=== PATIENT | male | born 1975 | race Caucasian/White ===

== ENCOUNTER 2017-01-03 18:08 | Inpatient (IN) | payer OTHER ==
[2017-01-03] MEDS ORDERED: SODIUM CHLORIDE 0.9% 1,000 ML IV ONE ×3 (18:24→19:18)
[2017-01-03 18:50] LABS: BASOPHILS # (AUTO) 0.2 10^3/uL (0.0-0.1); BASOPHILS % (AUTO) 1.3 %; HCT - HEMATOCRIT 50.3 % (42.0-52.0); HGB - HEMOGLOBIN 17.4 g/dL (14.0-18.0); LYMPHOCYTES % (AUTO) 5.6 %; MEAN CORPUSCULAR HEMOGLOBIN 29.6 pg (27.0-31.0); MEAN CORPUSCULAR HGB CONC 34.6 g/dL (32.0-36.0); MEAN CORPUSCULAR VOLUME 85.7 fL (80.0-94.0); MEAN PLATELET VOLUME 8.6 fL (7.4-11.4); MONOCYTES # (AUTO) 0.7 10^3/uL (0.0-1.0); MONOCYTES % (AUTO) 3.9 %; NEUTROPHILS # (AUTO) 16.4 10^3/uL (1.5-6.6); NEUTROPHILS % (AUTO) 89.2 %; RED BLOOD COUNT 5.87 10^6/uL (4.70-6.10); RED CELL DISTRIBUTION WIDTH 13.2 % (12.0-15.0); UNCORRECTED WHITE BLOOD COUNT 18.4 x10^3/uL; WHITE BLOOD COUNT 18.4 x10^3/uL (4.8-10.8)
[2017-01-03 19:04] LABS: ALBUMIN/GLOBULIN RATIO 1.6 (1.0-2.2); BILIRUBIN,TOTAL 1.5 mg/dL (0.2-1.0); CALCIUM 10.6 mg/dL (8.5-10.3); CREATININE 4.7 mg/dL (0.6-1.2); POTASSIUM 5.3 mmol/L (3.5-5.0); TOTAL PROTEIN 9.8 g/dL (6.7-8.2)
[2017-01-03] MEDS ORDERED: SODIUM BICARBONATE 100 MEQ in DEXTROSE 5% 1,000 ML IV STA (19:18)
--- NOTE | 2017-01-03 19:21 | ED Physician Documentation ---
History of Present Illness - Stated complaint Stated Complaint: N/V/ABD PX - Chief complaint Chief Complaint: General - History obtained from History obtained from: Patient, Family - History of Present Illness Timing: Last night Pain level max: 7 Pain level now: 0 Improved by: nothing Worsened by: nothing - Additonal information Additional information: patient states he ran 50 miles yesterday and 29 miles today. States vomiting last night after his run. Feels weak and tired today. Review of Systems Ten Systems: 10 systems reviewed and negative Constitutional: denies: Fever, Chills, Myalgias Ears: denies: Ear pain Nose: denies: Rhinorrhea / runny nose, Congestion Throat: denies: Sore throat Cardiac: denies: Chest pain / pressure Respiratory: denies: Dyspnea, Cough, Hemoptysis, Wheezing GI: reports: Nausea, Vomiting (last night). denies: Abdominal Pain, Constipation, Diarrhea : denies: Dysuria, Frequency, Hesitancy Skin: denies: Rash Musculoskeletal: denies: Neck pain, Back pain Neurologic: denies: Focal weakness, Numbness, Confused, Altered mental status, Head injury PD PAST MEDICAL HISTORY - Past Medical History Past Medical History: No - Past Surgical History Past Surgical History: Yes - Present Medications Home Medications: Ambulatory Orders Medication Instructions Recorded Confirmed No Known Home Medications [No 01/03/17 01/03/17 Known Home Medications] - Allergies Allergies/Adverse Reactions: Allergies Allergy/AdvReac Type Severity Reaction Status Date / Time No Known Drug Allergies Allergy Verified 01/03/17 18:24 - Social History Does the pt smoke?: No Smoking Status: Never smoker Does the pt drink ETOH?: Yes Does the pt have substance abuse?: No - Immunizations Immunizations are current?: Yes PD ED PE NORMAL - Vitals Vital signs reviewed: Yes - General General: Alert and oriented X 3, No acute distress, Well developed/nourished - HEENT HEENT: PERRL, Moist mucous membranes - Neck Neck: Supple, no meningeal sign - Cardiac Cardiac: RRR, Strong equal pulses - Respiratory Respiratory: No respiratory distress, Clear bilaterally - Abdomen Abdomen: Soft, Non tender, Non distended - Back Back: No spinal TTP - Derm Derm: Warm and dry, No rash - Extremities Extremities: No edema, No calf tenderness / cord - Neuro Neuro: Alert and oriented X 3 - Psych Psych: Normal mood, Normal affect Results - Vitals Vitals: Vital Signs - 24 hr 01/03/17 01/03/17 01/03/17 18:20 19:03 21:11 Temperature 36.6 C Heart Rate 63 76 66 Respiratory 16 16 18 Rate Blood Pressure 124/81 H 167/84 H 115/53 L O2 Saturation 100 99 96 Oxygen O2 Source Room air - Labs Labs: Laboratory Tests 01/03/17 01/03/17 01/03/17 18:39 18:39 18:39 WBC 18.4 H RBC 5.87 Hgb 17.4 Hct 50.3 MCV 85.7 MCH 29.6 MCHC 34.6 RDW 13.2 Plt Count 212 MPV 8.6 Neut # 16.4 H Lymph # 1.0 L [place] # 0.7 Eos # 0.0 Baso # 0.2 H Absolute Nucleated RBC 0.00 Nucleated RBCs 0.0 Sodium 134 L Potassium 5.3 H Chloride 91 L Carbon Dioxide 24 Anion Gap 19.0 H BUN 63 H Creatinine 4.7 H Estimated GFR (MDRD) 14 L Glucose 131 H Calcium 10.6 H Total Bilirubin 1.5 H AST 468 H ALT 94 H Alkaline Phosphatase 64 Total Creatine Kinase 57090 H* Total Protein 9.8 H Albumin 6.1 H Globulin 3.7 Albumin/Globulin Ratio 1.6 Lipase 30 Urine Color Urine Clarity Urine pH Ur Specific [place] Urine Protein Urine Glucose (UA) Urine Ketones Urine Occult Blood Urine Nitrite Urine Bilirubin Urine Urobilinogen Ur Leukocyte Esterase Urine RBC Urine WBC Ur Epithelial Cells Ur Squamous Epith Cells Urine Crystals Urine Bacteria Urine Casts Ur Microscopic Review Urine Culture Comments 01/03/17 20:05 WBC RBC Hgb Hct MCV MCH MCHC RDW Plt Count MPV Neut # Lymph # [place] # Eos # Baso # Absolute Nucleated RBC Nucleated RBCs Sodium Potassium Chloride Carbon Dioxide Anion Gap BUN Creatinine Estimated GFR (MDRD) Glucose Calcium Total Bilirubin AST ALT Alkaline Phosphatase Total Creatine Kinase Total Protein Albumin Globulin Albumin/Globulin Ratio Lipase Urine Color DARK YELLOW Urine Clarity CLOUDY Urine pH 5.5 Ur Specific [place] 1.020 Urine Protein 100 H Urine Glucose (UA) NEGATIVE Urine Ketones TRACE Urine Occult Blood LARGE H Urine Nitrite NEGATIVE Urine Bilirubin NEGATIVE Urine Urobilinogen 0.2 (NORMAL) Ur Leukocyte Esterase NEGATIVE Urine RBC 0-5 Urine WBC Ur Epithelial Cells FEW Renal Tubular Ur Squamous Epith Cells NONE SEEN Urine Crystals 6-10 Calcium Oxalate Urine Bacteria Few Urine Casts 11-25 Hyaline Casts Ur Microscopic Review INDICATED Urine Culture Comments Not Reportable PD MEDICAL DECISION MAKING - ED course Complexity details: reviewed results, re-evaluated patient, considered differential, d/w patient, d/w family, d/w solar sales consultant ED course: Patient is a 41-year-old male who presents to the emergency department with rhabdomyolysis after running 50 miles yesterday and another 29 miles today. He was started on normal saline drip. Patient was then transitioned to a sodium bicarbonate drip to alkalinize the urine. Discussed the case with the hospitalist, Dr. Roman, who accepts. This document was made in part using voice recognition software. While efforts are made to proofread this document, sound alike and grammatical errors may occur. Departure - Departure Disposition: 66 [facility] DC/Xfer Clinical Impression: Dehydration, Elevated LFTs Acute renal failure Qualifiers: Acute renal failure type: unspecified Qualified Code(s): N17.9 - Acute kidney failure, unspecified Rhabdomyolysis Qualifiers: Rhabdomyolysis type: non-traumatic Qualified Code(s): M62.82 - Rhabdomyolysis Condition: Stable Discharge Date/Time: 01/03/17 21:30
[2017-01-03] MEDS ORDERED: DEXTROSE 5% 1,000 ML IV ONE (19:33)
[2017-01-03] MEDS ORDERED: SODIUM BICARBONATE ABBOJECT 50 MEQ/50 ML SYRINGE ONE ×2 (19:33→19:45)
[2017-01-03] MEDS ORDERED: SODIUM BICARBONATE 150 MEQ in DEXTROSE 5% 1,000 ML IV STA (19:40)
[2017-01-03 20:19] LABS: PH,URINE 5.5 PH (5.0-7.5)
[2017-01-03 20:26] LABS: UA w/ MICROSCOPIC CHARGE YES
[2017-01-03 20:30] LABS: BILIRUBIN,URINE NEGATIVE (NEGATIVE)
[2017-01-03] MEDS ORDERED: oxyCODONE 5 MG TABLET PO PRN (21:17)
[2017-01-03] MEDS ORDERED: PROCHLORPERAZINE 10 MG/2 ML VIAL IVP PRN (21:17)
[2017-01-03] MEDS ORDERED: SODIUM CHLORIDE FLUSH 0.9% 10 ML SYRINGE IVP PRN (21:17)
[2017-01-03] MEDS ORDERED: HYDROmorphone 1 MG/ML SYRINGE IVP PRN (21:17)
[2017-01-03] MEDS ORDERED: ZOLPIDEM 5 MG TABLET PO PRN (21:17)
[2017-01-03] MEDS ORDERED: SODIUM BICARBONATE 150 MEQ in DEXTROSE 5% 1,000 ML IV SCH (22:00)
[2017-01-03] MEDS ORDERED: SODIUM BICARBONATE 100 MEQ in DEXTROSE 5% 1,000 ML IV SCH (22:00)
[2017-01-03] MEDS: SODIUM CHLORIDE 0.9% 1,000 ML IV SCH (22:31)
[2017-01-03] MEDS: SODIUM CHLORIDE FLUSH 0.9% 10 ML SYRINGE IVP SCH (22:31)
--- NOTE | 2017-01-04 00:19 | HISTORY & PHYSICAL EXAMINATION ---
DATE OF ADMISSION: 01/03/2017 HISTORY OF PRESENT ILLNESS: This is a 41-year-old white male with a negative past medical history, on no prescription medications. The patient has been a runner/jogger for 12 years and works out 5-7 day s a week, between 5-20 mile runs each time. When he runs marathons, he usually has 1 day of weakness and needs to rehydrate and recover. The patient is taking part in a race around the [facility], an d yesterday he ran 50 miles and today 30 miles. Yesterday, toward the end of the entire run, he start ed to develop nausea with vomiting and sudden diarrhea and near syncope at the end of the race with w hat he describes as tunnel vision, which improved with simply putting his head down. Even returning h ome, he was nauseated and he continued to vomit. He could not take any dinner. He was able to eat in the middle of the night when he drank water and had a slice of pizza. He awoke and took part in [employer] ar activities but was more tired earlier and had continued abdominal pain, nausea and vomiting. Inter mittently yesterday and today, he developed calf cramps, which he occasionally does get during marath ons. When the patient has long runs, he takes between 2 and 10 tablets of Advil per day, 200 mg tablets, 2 at a time, approximately 2 hours apart, at maximum dosage. Yesterday, he did take 10. Today, he took approximately 4 tablets of Advil. At the end of today's portion of the race, he presented to [facility] room with nausea and continued vomiting, weakness, tunnel vision once again with near syncope, calf cramps, and his noted that both evenings, he was more confused and lethargic. In the emerg ency room, he was found to have a total CPK on blood test of 17,093 and is admitted for rhabdomyolysi s treatment. Of note also is that his creatinine is 4.7 and he has been starting to get alkalinizatio n of urine with bicarbonate via an IV drip. MEDICATIONS AT HOME: Only the Advil p.r.n. ALLERGIES: NO KNOWN ALLERGIES. SOCIAL HISTORY: He is a social drinker who has a maximum of 2 glass of wine very rarely. He does not smoke and never did. He uses no illicit drugs. FAMILY HISTORY: Positive for cancer of the breast and skin in his mother, and his father had peritoni tis and also has had cardiac ablation. He has one sister who is healthy. He has a son who is healthy. 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 He lives with his and son. REVIEW OF SYSTEMS: Shows that he has had no fever, no chills, no seizures, no palpitations. The rest of review of systems is negative. PHYSICAL EXAMINATION GENERAL: A white male who is slow in his speech but is otherwise intact and appropriate. VITAL SIGNS: Blood pressure 124/81. Heart rate is in the 60s and 70s and sinus rhythm. He was afebri le. HEENT: Unremarkable. His mucosa is moist. His eyes are not sunken. Neck shows no JVD at a 30-degree h eart angle. NECK: No carotid bruits, no thyromegaly. CHEST: Clear. HEART: Sounds are normal. There is no gallop or heave. ABDOMEN: Soft with decreased bowel sounds, nontender to light palpation. No rebound. EXTREMITIES: No clubbing, cyanosis or edema. No calf tenderness. NEUROLOGIC: Intact. LABORATORY DATA: Sodium 134, potassium 5.3, BUN 63, creatinine 4.7, AST 468, ALT 94, total CPK 17,093 , albumin 6.1. White blood count 18.4 with a left shift, hemoglobin 17.4, platelet count normal. Ther e was no PT/INR done. There was no EKG done. There was no chest x-ray done. Salicylate level is negligible on blood screen. DIAGNOSES 1. Rhabdomyolysis. 2. Acute renal failure. 3. Hyperkalemia. 4. Excessive Advil use. PLAN: IV hydration at a rapid rate, 200-300 mL an hour. After 1 liter of bicarbonate, [address], that will be changed to all saline hydration. Continue to follow his potassium, creatinine, CPK level. Warm or cool compresses p.r.n. The patient was advised that in the future, he needs longer anna aks as well as hydration during running. The patient was advised that if kidney function worsens, he may need temporary dialysis and, in rare cases, permanent dialysis which would require transfer to a facility with higher level of care. JOB #: [id number] EXT JOB #:[id number]
[2017-01-04 01:07] LABS: BASOPHILS # (AUTO) 0.1 10^3/uL (0.0-0.1); BASOPHILS % (AUTO) 0.7 %; EOSINOPHILS % (AUTO) 0.1 %; HCT - HEMATOCRIT 41.1 % (42.0-52.0); LYMPHOCYTES % (AUTO) 15.2 %; MEAN CORPUSCULAR VOLUME 85.4 fL (80.0-94.0); MEAN PLATELET VOLUME 8.1 fL (7.4-11.4); MONOCYTES # (AUTO) 1.1 10^3/uL (0.0-1.0); MONOCYTES % (AUTO) 8.3 %; NEUTROPHILS # (AUTO) 9.9 10^3/uL (1.5-6.6); NEUTROPHILS % (AUTO) 75.7 %; RED BLOOD COUNT 4.81 10^6/uL (4.70-6.10); RED CELL DISTRIBUTION WIDTH 13.5 % (12.0-15.0); UNCORRECTED WHITE BLOOD COUNT 13.1 x10^3/uL; WHITE BLOOD COUNT 13.1 x10^3/uL (4.8-10.8)
[2017-01-04 01:18] LABS: CALCIUM 8.8 mg/dL (8.5-10.3); CREATININE 3.1 mg/dL (0.6-1.2); MAGNESIUM 2.6 mg/dL (1.7-2.8); POTASSIUM 4.5 mmol/L (3.5-5.0)
[2017-01-04 01:46] LABS: CREATININE 2.9 mg/dL (0.6-1.2); POTASSIUM 4.3 mmol/L (3.5-5.0)
[2017-01-04] MEDS: SODIUM CHLORIDE FLUSH 0.9% 10 ML SYRINGE IVP SCH ×3 (04:32→21:42)
[2017-01-04] MEDS ORDERED: FAMOTIDINE 20 MG TABLET PO SCH (09:00)
[2017-01-04] MEDS ORDERED: POLYETHYLENE GLYCOL 3350 17 GM PACKET PO SCH (09:00)
[2017-01-04] MEDS: SODIUM CHLORIDE 0.9% 1,000 ML IV SCH ×5 (09:38→21:41)
[2017-01-04 09:44] LABS: BILIRUBIN,URINE NEGATIVE (NEGATIVE)
--- NOTE | 2017-01-04 14:05 | PROVIDER PROGRESS NOTE ---
Assessment/Plan - Problem List (1) Acute renal failure Qualifiers: Acute renal failure type: unspecified Qualified Code(s): N17.9 - Acute kidney failure, unspecified Assessment/Plan: He is urinating well. He had Creatinine of 4.3 and now is 3.0 Will continue the Flushing of the kidneys (2) Rhabdomyolysis Qualifiers: Rhabdomyolysis type: non-traumatic Qualified Code(s): M62.82 - Rhabdomyolysis Assessment/Plan: He is sore and had CPK of 17K. will continue the therapy and monitor. - Current Meds Current Meds: Current Medications Generic Name Dose Route Start Last Admin Trade Name Freq PRN Reason Stop Dose Admin Famotidine 20 mg 01/04/17 09:00 01/04/17 09:38 Pepcid PO Not Given DAILY LAURA Sodium Chloride 1,000 mls @ 250 mls/hr 01/04/17 10:01 01/04/17 13:39 Normal Saline 0.9% IV 250 mls/hr .Q4H LAURA Administration Polyethylene Glycol 17 gm 01/04/17 09:00 01/04/17 09:38 Miralax PO Not Given DAILY LAURA Sodium Chloride 10 ml 01/03/17 22:00 01/04/17 13:23 Normal Saline Flush 0.9% IVP Not Given Q8HR LAURA - Lab Result Fish Bone Diagrams: 01/04/17 01:00 01/04/17 01:00 - Additional Planning My Orders: My Active Orders 01/04/17 10:01 Sodium Chloride 0.9% [Normal Saline 0.9%] 1,000 ml IV 250 mls/hr Subjective - Subjective Patient Reports: Feeling Better, Resting Comfortably Objective Vital Signs: Vital Signs - 24 hr 01/03/17 01/03/17 01/04/17 21:40 23:45 04:00 Temperature 37.1 C 37.2 C 36.9 C Heart Rate [ 63 61 60 Brachial] Respiratory 16 16 16 Rate Blood Pressure 133/70 H 111/64 112/70 [Right Brachial artery] O2 Saturation 100 97 98 01/04/17 01/04/17 08:04 12:49 Temperature 36.8 C 36.8 C Heart Rate [ 66 50 L Brachial] Respiratory 16 16 Rate Blood Pressure 113/62 131/79 H [Right Brachial artery] O2 Saturation 99 99 Oxygen O2 Source Room air I&O (Last 24 Hrs): Intake and Output Totals x24h 01/02/17 01/03/17 01/04/17 23:59 23:59 23:59 Intake Total 4319 Output Total 480 700 Balance -480 3619 General: Alert, Oriented x3, Cooperative HEENT: PERRLA, EOMI Neck: No JVD, No thyromegaly Neuro: Alert, Oriented Times 3 Cardiovascular: Regular rate, No murmurs Respiratory: Chest non-tender, Breath sounds nml Abdomen: Normal bowel sounds, Soft Extremities: No clubbing, Normal pulses - Results Results: Laboratory Results WBC 13.1 x10^3/uL (4.8-10.8) H 01/04/17 01:00 RBC 4.81 10^6/uL (4.70-6.10) 01/04/17 01:00 Hgb 14.0 g/dL (14.0-18.0) 01/04/17 01:00 Hct 41.1 % (42.0-52.0) L 01/04/17 01:00 MCV 85.4 fL (80.0-94.0) 01/04/17 01:00 MCH 29.0 pg (27.0-31.0) 01/04/17 01:00 MCHC 34.0 g/dL (32.0-36.0) 01/04/17 01:00 RDW 13.5 % (12.0-15.0) 01/04/17 01:00 Plt Count 179 10^3/uL (130-450) 01/04/17 01:00 MPV 8.1 fL (7.4-11.4) 01/04/17 01:00 Neut # 9.9 10^3/uL (1.5-6.6) H 01/04/17 01:00 Lymph # 2.0 10^3/uL (1.5-3.5) 01/04/17 01:00 [place] # 1.1 10^3/uL (0.0-1.0) H 01/04/17 01:00 Eos # 0.0 10^3/uL (0.0-0.7) 01/04/17 01:00 Baso # 0.1 10^3/uL (0.0-0.1) 01/04/17 01:00 Absolute Nucleated RBC 0.00 x10^3/uL 01/04/17 01:00 Nucleated RBCs 0.0 /100WBC 01/04/17 01:00 Sodium 137 mmol/L (135-145) 01/04/17 01:00 Potassium 4.3 mmol/L (3.5-5.0) 01/04/17 01:00 Chloride 98 mmol/L (101-111) L 01/04/17 01:00 Carbon Dioxide 29 mmol/L (21-32) 01/04/17 01:00 Anion Gap 10.0 (6-13) 01/04/17 01:00 BUN 59 mg/dL (6-20) H 01/04/17 01:00 Creatinine 2.9 mg/dL (0.6-1.2) H 01/04/17 01:00 Estimated GFR (MDRD) 24 (>89) L 01/04/17 01:00 Glucose 124 mg/dL (70-100) H 01/04/17 01:00 Calcium 8.8 mg/dL (8.5-10.3) 01/04/17 01:00 Magnesium 2.6 mg/dL (1.7-2.8) 01/04/17 01:00 Total Bilirubin 1.5 mg/dL (0.2-1.0) H 01/03/17 18:39 AST 468 IU/L (10-42) H 01/03/17 18:39 ALT 94 IU/L (10-60) H 01/03/17 18:39 Alkaline Phosphatase 64 IU/L (42-121) 01/03/17 18:39 Total Creatine Kinase 91729 IU/L (22-269) H* 01/04/17 09:10 Total Protein 9.8 g/dL (6.7-8.2) H 01/03/17 18:39 Albumin 6.1 g/dL (3.2-5.5) H 01/03/17 18:39 Globulin 3.7 g/dL (2.1-4.2) 01/03/17 18:39 Albumin/Globulin Ratio 1.6 (1.0-2.2) 01/03/17 18:39 Lipase 30 U/L (22-51) 01/03/17 18:39 Urine Color YELLOW 01/04/17 09:20 Urine Clarity CLEAR (CLEAR) 01/04/17 09:20 Urine pH 5.0 PH (5.0-7.5) 01/04/17 09:20 Ur Specific [place] 1.020 (1.002-1.030) 01/04/17 09:20 Urine Protein NEGATIVE mg/dL (NEGATIVE) 01/04/17 09:20 Urine Glucose (UA) NEGATIVE mg/dL (NEGATIVE) 01/04/17 09:20 Urine Ketones NEGATIVE mg/dL (NEGATIVE) 01/04/17 09:20 Urine Occult Blood MODERATE (NEGATIVE) H 01/04/17 09:20 Urine Nitrite NEGATIVE (NEGATIVE) 01/04/17 09:20 Urine Bilirubin NEGATIVE (NEGATIVE) 01/04/17 09:20 Urine Urobilinogen 0.2 (NORMAL) E.U./dL (NORMAL) 01/04/17 09:20 Ur Leukocyte Esterase NEGATIVE (NEGATIVE) 01/04/17 09:20 Urine RBC 0-5 /HPF (0-5) 01/04/17 09:20 Urine WBC /HPF (0-3) 01/04/17 09:20 Ur Epithelial Cells FEW Renal Tubular /HPF (<= Few) 01/04/17 09:20 Ur Squamous Epith Cells FEW Squamous (<= Few) 01/04/17 09:20 Urine Crystals 6-10 Calcium Oxalate /LPF 01/03/17 20:05 Urine Bacteria None Seen /HPF (None Seen) 01/04/17 09:20 Urine Casts 11-25 Cellular Casts /LPF 01/04/17 09:20 Ur Microscopic Review INDICATED 01/03/17 20:05 Urine Culture Comments Not Reportable 01/03/17 20:05 Salicylates < 6.0 mg/dL 01/03/17 22:02
[2017-01-05] MEDS: SODIUM CHLORIDE 0.9% 1,000 ML IV SCH ×2 (01:13→04:39)
[2017-01-05] MEDS: SODIUM CHLORIDE FLUSH 0.9% 10 ML SYRINGE IVP SCH (05:06)
[2017-01-05 05:16] LABS: BASOPHILS # (AUTO) 0.1 10^3/uL (0.0-0.1); BASOPHILS % (AUTO) 0.8 %; EOSINOPHILS # (AUTO) 0.1 10^3/uL (0.0-0.7); EOSINOPHILS % (AUTO) 1.7 %; HCT - HEMATOCRIT 35.8 % (42.0-52.0); HGB - HEMOGLOBIN 12.2 g/dL (14.0-18.0); LYMPHOCYTES # (AUTO) 2.3 10^3/uL (1.5-3.5); LYMPHOCYTES % (AUTO) 38.1 %; MEAN CORPUSCULAR HEMOGLOBIN 30.1 pg (27.0-31.0); MEAN CORPUSCULAR HGB CONC 34.2 g/dL (32.0-36.0); MEAN PLATELET VOLUME 8.7 fL (7.4-11.4); MONOCYTES # (AUTO) 0.5 10^3/uL (0.0-1.0); MONOCYTES % (AUTO) 7.7 %; NEUTROPHILS # (AUTO) 3.1 10^3/uL (1.5-6.6); NEUTROPHILS % (AUTO) 51.7 %; RED BLOOD COUNT 4.07 10^6/uL (4.70-6.10); RED CELL DISTRIBUTION WIDTH 13.5 % (12.0-15.0); UNCORRECTED WHITE BLOOD COUNT 6.1 x10^3/uL; WHITE BLOOD COUNT 6.1 x10^3/uL (4.8-10.8)
[2017-01-05 05:26] LABS: ALBUMIN/GLOBULIN RATIO 1.7 (1.0-2.2); CALCIUM 7.8 mg/dL (8.5-10.3); POTASSIUM 4.3 mmol/L (3.5-5.0); TOTAL PROTEIN 5.4 g/dL (6.7-8.2)
--- NOTE | 2017-01-05 06:26 | Discharge Plan ---
Discharge Plan Disposition: 01 Home, Self Care Condition: Good Diet: Regular Activity Restrictions: Activity as Tolerated Shower Restrictions: No Driving Restrictions: No Additional Instructions or Follow Up instructions: Drink extra fluids, especially water at least 3 quarts, and slowly increase your exercise in length and intensity over the next 3 weeks. Also avoid NSAIDS during the next week as your kidneys continue to heal. Get an appt and lab tests in the next 5-7 days with your PCP Thank you, Dr Kyle Granados Smoking: If you smoke, Please STOP! Call for help.
[2017-01-05 08:50] VITALS: BP 91/45
--- NOTE | 2017-01-05 09:04 | DISCHARGE SUMMARY ---
DATE OF ADMISSION: 01/03/2017 DATE OF DISCHARGE: 01/05/2017 PRIMARY CARE PHYSICIAN: Out of the area. ADMISSION DIAGNOSES: 1. Rhabdomyolysis. 2. Acute renal failure. 3. Hyperkalemia. 4. Excessive Advil USE. DISCHARGE DIAGNOSES: 1. Rhabdomyolysis, improved. 2. Acute renal failure with near total improvement. 3. Hyperkalemia, resolved. 4. Excessive Advil use, patient educated. SPECIAL PROCEDURES: None. CONSULTATIONS: None. HOSPITAL COURSE AND MANAGEMENT: The initial presentation, emergency department evaluation, and hospit ali's plan is well described in the history and physical, see copy of same. SUMMARY: This is a 41-year-old male with no significant past medical history, no prescription medicat ions. He has been a runner/jogger for 12 years. He works out and runs between 5 and 20 miles. The sangita carvalho runs marathons and usually has no problems. He was taking part in a race around the [place], ran 50 miles the first day, 30 miles the second day. He developed nausea, vomiting, diarrhea, near syncop e at the end of the race. The patient continued to vomit, did not have any dinner and he got abdomina l pain, calf cramps. He took a large number of Advil 200 mg pills, #10 in the last 24 hours. He becam e more confused and lethargic. In the emergency department, he had a CK level of 17,000 with a creati nine of 4.7 and was admitted for IV hydration, monitoring and potential dialysis. The patient improved over the next day. His CK went down to 10,000 and his creatinine went to 3.0 and the day of discharge, his creatinine was down to 1.0, and his CK was 10,300. PHYSICAL EXAMINATION VITAL SIGNS: On the day of discharge, 36.8, 47, 107/55, 16, 99 on room air saturation. EYES: EOM within normal limits, PERRL, nonicteric. MOUTH AND THROAT: Moist mucous membranes. No other pathology noted in mouth or pharynx. NECK: Nontender. No lymphadenopathy, no thyromegaly, no JVD. CHEST WALL: Nontender. Symmetric. HEART: Normal sinus bradycardia with no murmur, rubs, clicks. LUNGS: Clear, good air movement bilaterally. ABDOMEN: Soft, nontender. Normal bowel sounds, no hepatosplenomegaly. GENITAL/RECTAL: Exam not done. NEUROLOGIC: Cognitive intact. Cranial nerves intact. Motor intact. The patient has some soreness of h is extremities, but has full range of motion, ambulates without difficulty. Cognition intact. LABORATORY DATA: On the day of discharge, his white count is 6.1, 12 and 36 hemoglobin and hematocrit , platelets 135. Sodium 139, potassium 4.3, chloride 109, CO2 of 26, BUN 22, creatinine is 1.0, kidne y function, which is 14 is up to 83. The patient's liver enzymes are modestly elevated with an AST of 240 and ALT of 90, alkaline phosphorus is 39. The patient had an albumin of 3.4 and urine showed mod erate blood, a few renal tubular cells, few squamous cells and 11-25 cellular casts. DISCHARGE: He is discharged home. No medications, but avoid NSAIDs for the next week, to slowly retur n to his usual activity over the next week to 2 weeks and he needs to drink at least 3 quarts of wate r a day. The patient expressed his understanding and is discharged home. Time spent in discharge acti vity less than 30 minutes. The patient was examined on the day of discharge. JOB #: [id number] EXT JOB #:[id number]
== END 2017-01-05 09:15 | disposition home or self-care (01) | DRG 683 ==
LOC: ED 18:08 → MS2 21:17
PROVIDERS: ADMIT Internal Medicine; ATTEND Internal Medicine
DX: N17.9 Acute kidney failure, unspecified (principal); M62.82 Rhabdomyolysis; E87.5 Hyperkalemia; T39.311A Poisoning by propionic acid derivatives, accidental (unintentional), initial encounter; E86.0 Dehydration; R79.89 Other specified abnormal findings of blood chemistry
CPT/HCPCS: 36415; 80048; 80053; 80329; 81001; 81003; 82550; 82565; 83690; 83735; 84132; 85025; 87086; 93005; 96361; 96374; 99283; 99284; 99285

== ENCOUNTER 2020-02-29 08:00 | Outpatient (CLI) | payer OTHER | END 2020-02-29 08:01 | disposition home or self-care (01) | LOC: COV 08:00 | PROVIDERS: ATTEND Family Medicine | DX: R50.9 Fever, unspecified (principal); R19.7 Diarrhea, unspecified; Z20.828 Contact with and (suspected) exposure to other viral communicable diseases ==